=== PATIENT | female | born 1945 | race Caucasian/White ===

== ENCOUNTER → 2023-01-24 | Day surgery (SDC) | payer MEDICARE ==
[~2023-01-24] MED LIST: ALBUTEROL0.63 MG/3 NEB; ASPIRIN81 MG PO; BALANCED SALT SOLN (OPTH) 15 ML BTL IO ONE; BENZONATATE200 MG PO; BREZTRI AEROS10.7 GM INH; DILTIAZEM HCL30 MG PO; ETOMIDATE 2 MG/ML 10 ML INJ IV ONE; FAMOTIDINE20 MG PO; FENTANYL CITRATE/PF 100MCG/2 ML INJ ONE; GLEEVEC400 MG PO; LIDOCAINE 2% /EPINEPHRINE 20 ML SDV INJ ONE; LIDOCAINE HCL 2% LOCAL INJ 5 ML SDV VIAL INJ ONE; MIDAZOLAM HCL 2 MG/2 ML VIAL ONE; NEOMYCIN/POLYMYXIN/DEX (OPTH) 3.5 GM TUBE ONE; ONDANSETRON HCL INJ 2MG/ML 2ML 2 MG/ML VIAL ONE; POVIDONE IODINE 0.05% 0.05 % ML PO ONE; POVIDONE IODINE 5% (OPTH) 30 ML BTL ONE; PROPOFOL IV EMULSION 10 MG/ML 20 ML VIAL ONE; SPIRONOLACTONE25 MG PO; VENTOLIN HFA18 GM INH
[2023-01-24 14:00] VITALS: BP 118/64
== END | disposition home or self-care (01) ==
LOC: OR 09:01
PROVIDERS: ATTEND Ophthalmology
DX: H02.834 Dermatochalasis of left upper eyelid (principal); H02.831 Dermatochalasis of right upper eyelid; Z79.82 Long term (current) use of aspirin; Z79.899 Other long term (current) drug therapy
CPT/HCPCS: 15823; J2001 ×2; J2250; J2405; J2704; J3010